=== PATIENT | male | born 1995 | race Caucasian/White ===

== ENCOUNTER 2017-12-05 10:25 | Emergency (ER) | payer OTHER ==
[2017-12-05] MEDS: TETRACAINE 0.5% OPHTH SOLN 4ML OS (11:06)
== END 2017-12-05 12:16 | disposition home or self-care (01) ==
LOC: M ED 10:25
DX: H02.402 Unspecified ptosis of left eyelid (principal)
CPT/HCPCS: 70450